=== PATIENT | female | born 1985 | race Caucasian/White ===

== ENCOUNTER 2023-01-15 03:20 | Inpatient (IN) | payer MEDICAID, OTHER ==
--- NOTE | 2023-01-15 04:55 | ED ---
General Adult HPI - General Source: patient, RN notes reviewed, old records reviewed Mode of arrival: ambulatory <Merlin Bello - Last Filed: 01/15/23 05:40> <Steven Pineda - Last Filed: 01/15/23 15:57> - General Chief complaint: Psychiatric Symptoms Stated complaint: LE Petition - Mental Health Time Seen by Provider: 01/15/23 03:34 - History of Present Illness Initial comments: 37-year-old female presenting for mental health evaluation, suspected overdose. Patient is reluctant to give any details as to what medication or illicit substances she may have ingested or when she ingested these substances. She is alert and oriented however she is not agreeable with history or physical exam. Patient was brought in by police and has been petitioned. (Merlin Bello) - Related Data Home Medications Medication Instructions Recorded Confirmed Cetirizine HCl 10 mg PO DAILY 01/15/23 01/15/23 Cholecalciferol (Vitamin D3) 75 mcg PO DAILY 01/15/23 01/15/23 [Vitamin D3 (3000 Iu)] Ibuprofen [Motrin] 800 mg PO TID PRN 01/15/23 01/15/23 Levothyroxine Sodium [Synthroid] 100 mcg PO DAILY 01/15/23 01/15/23 Montelukast [Singulair] 10 mg PO DAILY 01/15/23 01/15/23 Pantoprazole Sodium [Protonix] 20 mg PO BID 01/15/23 01/15/23 Allergies Allergy/AdvReac Type Severity Reaction Status Date / Time No Known Allergies Allergy Verified 01/15/23 09:29 Review of Systems ROS Other: All systems not noted in ROS Statement are negative. <Merlin Bello - Last Filed: 01/15/23 05:40> ROS Other: All systems not noted in ROS Statement are negative. <Steven Pineda - Last Filed: 01/15/23 15:57> ROS Statement: Those systems with pertinent positive or pertinent negative responses have been documented in the HPI. Past Medical History Past Medical History: Thyroid Disorder Additional Past Medical History / Comment(s): boils, hypothyroidism. History of Any Multi-Drug Resistant Organisms: None Reported Past Surgical History: Cholecystectomy Additional Past Surgical History / Comment(s): brain surgery, Past Psychological History: Depression Past Alcohol Use History: None Reported Past Drug Use History: None Reported <AceMerlin Diamond - Last Filed: 01/15/23 05:40> General Exam General appearance: alert, in no apparent distress Head exam: Present: atraumatic, normocephalic Eye exam: Present: normal appearance Neck exam: Present: normal inspection Respiratory exam: Absent: respiratory distress Cardiovascular Exam: Present: regular rate (As assessed with triage vitals) GI/Abdominal exam: Absent: distended Extremities exam: Present: normal inspection Neurological exam: Present: alert, normal gait. Absent: motor sensory deficit Psychiatric exam: Present: agitated, anxious Skin exam: Present: warm, dry, intact <Merlin Bello - Last Filed: 01/15/23 05:40> Course <Merlin Bello - Last Filed: 01/15/23 05:40> Vital Signs 01/15/23 03:30 Temperature 98 F Pulse Rate 99 Respiratory 18 Rate Blood Pressure 133/83 O2 Sat by Pulse 99 Oximetry - Reevaluation(s) Reevaluation #1: 01/15/23 05:40 Patient medically cleared for EPS evaluation (Merlin Bello) Medical Decision Making - Lab Data Result diagrams: 01/15/23 04:29 01/15/23 04:29 <Merlin Bello - Last Filed: 01/15/23 05:40> - Lab Data Result diagrams: 01/15/23 04:29 01/15/23 04:29 <Steven Pineda - Last Filed: 01/15/23 15:57> - Medical Decision Making Was pt. sent in by a medical professional or institution (Dr. PA, PLASTIC MACHINE OPERATOR, urgent care, hospital, or [facility]...) When possible be specific @ -[No] Did you speak to anyone other than the patient for history (EMS, parent, family, police, friend...)? What history was obtained from this source @ -Local police Did you review nursing and triage notes (agree or disagree)? Why? @ -[I reviewed and agree with nursing and triage notes] Were old charts reviewed (outside hosp., previous admission, EMS record, old EKG, old radiological studies, urgent care reports/EKG's, [facility] records)? Report findings @ -[No old charts were reviewed] Differential Diagnosis (chest pain, altered mental status, abdominal pain women, abdominal pain men, vaginal bleeding, weakness, fever, dyspnea, syncope, head ache, dizziness, GI bleed, back pain, seizure, CVA, palpatations, mental health, musculoskeletal)? @ -Differential Mental Health Depression, anxiety, bipolar, psychosis, schizophrenia, borderline personality, situational depression, adjustment disorder, behavioral disorder, brain tumor, malingering, substance abuse, encephalopathy, medication reaction, dementia, hypothyroidism, degenerative neurologic disorder, lupus.... This is not meant to be all-inclusive list EKG interpreted by me (3pts min.). @ Sinus rhythm artifact limiting assessment, rate of 78, AL interval 180, QRS duration 95, QTC 441 X-rays interpreted by me (1pt min.). @ -[None done] CT interpreted by me (1pt min.). @ -[None done] U/S interpreted by me (1pt. min.). @ -[None done] What testing was considered but not performed or refused? (CT, X-rays, U/S, labs)? Why? @ -[None] What meds were considered but not given or refused? Why? @ -[None] Did you discuss the management of the patient with other professionals (professionals i.e. , PA, PLASTIC MACHINE OPERATOR, lab, RT, psych nurse, sexual assault social worker, senior embedded software engineer, teacher, staff air defense officer, case management manager)? Give summary @ EPS nurse Was smoking cessation discussed for >3mins.? @ -[No] Was critical care preformed (if so, how long)? @ -[No] Were there social determinants of health that impacted care today? How? (Homeles sness, low income, unemployed, alcoholism, drug addiction, transportation, low edu. Level, literacy, decrease access to med. care, assisted, rehab)? @ -[No] Was there de-escalation of care discussed even if they declined (Discuss DNR or withdrawal of care, Hospice)? DNR status @ -[No] What co-morbidities impacted this encounter? (DM, HTN, Smoking, COPD, CAD, Cancer, CVA, ARF, Chemo, Hep., AIDS, mental health diagnosis, sleep apnea, morbid obesity)? @ Depression Was patient admitted / discharged? Hospital course, mention meds given and route, prescriptions, significant lab abnormalities, going to OR and other pertinent info. @ Patient has been medically cleared and currently awaiting EPS evaluation for suicide attempt. Patient has been petitioned by local police. (Merlin Bello) Patient was seen by mental health nurse with plans for admission. They do request certain. I did discuss the case with mental health nurse. Patient was reevaluated by myself, Dr. Pineda. Patient resting comfortably in bed. Patient amiss to suicidal thoughts with plan. Patient also has had some recent hallucinations. Patient also admits to having thoughts of harming others because she does not have her phone. Diagnosis: Depression, hallucinations, suicidal ideation Acute acute, acute Positive clinical certificate was completed (Steven Pineda) - Lab Data Lab Results 01/15/23 01/15/23 01/15/23 Range/Units 04:29 04:29 04:29 WBC 11.4 H (3.8-10.6) k/uL RBC 4.23 (3.80-5.40) m/uL Hgb 12.1 (11.4-16.0) gm/dL Hct 37.4 (34.0-46.0) % MCV 88.6 (80.0-100.0) fL MCH 28.6 (25.0-35.0) pg MCHC 32.3 (31.0-37.0) g/dL RDW 15.1 (11.5-15.5) % Plt Count 478 H (150-450) k/uL MPV 6.6 Neutrophils % 75 % Lymphocytes % 17 % Monocytes % 5 % Eosinophils % 1 % Basophils % 0 % Neutrophils # 8.6 H (1.3-7.7) k/uL Lymphocytes # 1.9 (1.0-4.8) k/uL Monocytes # 0.6 (0-1.0) k/uL Eosinophils # 0.1 (0-0.7) k/uL Basophils # 0.0 (0-0.2) k/uL Sodium (137-145) mmol/L Potassium (3.5-5.1) mmol/L Chloride (98-107) mmol/L Carbon Dioxide (22-30) mmol/L Anion Gap mmol/L BUN (7-17) mg/dL Creatinine (0.52-1.04) mg/dL Est GFR (CKD-EPI)AfAm (>60 ml/min/1.73 sqM) Est GFR (CKD-EPI)NonAf (>60 ml/min/1.73 sqM) Glucose (74-99) mg/dL Calcium (8.4-10.2) mg/dL Total Bilirubin (0.2-1.3) mg/dL AST (14-36) U/L ALT (4-34) U/L Alkaline Phosphatase (38-126) U/L Total Protein (6.3-8.2) g/dL Albumin (3.5-5.0) g/dL Urine HCG, Qual Not Detected (Not Detectd) Salicylates mg/dL Urine Opiates Screen Not Detected (NotDetected) Ur Oxycodone Screen Not Detected (NotDetected) Urine Methadone Screen Not Detected (NotDetected) Ur Propoxyphene Screen Not Detected (NotDetected) Acetaminophen ug/mL Ur Barbiturates Screen Not Detected (NotDetected) U Tricyclic Antidepress Not Detected (NotDetected) Ur Phencyclidine Scrn Not Detected (NotDetected) Ur Amphetamines Screen Detected H (NotDetected) U Methamphetamines Scrn Detected H (NotDetected) U Benzodiazepines Scrn Not Detected (NotDetected) Urine Cocaine Screen Not Detected (NotDetected) U Marijuana (THC) Screen Detected H (NotDetected) Serum Alcohol mg/dL 01/15/23 Range/Units 04:29 WBC (3.8-10.6) k/uL RBC (3.80-5.40) m/uL Hgb (11.4-16.0) gm/dL Hct (34.0-46.0) % MCV (80.0-100.0) fL MCH (25.0-35.0) pg MCHC (31.0-37.0) g/dL RDW (11.5-15.5) % Plt Count (150-450) k/uL MPV Neutrophils % % Lymphocytes % % Monocytes % % Eosinophils % % Basophils % % Neutrophils # (1.3-7.7) k/uL Lymphocytes # (1.0-4.8) k/uL Monocytes # (0-1.0) k/uL Eosinophils # (0-0.7) k/uL Basophils # (0-0.2) k/uL Sodium 139 (137-145) mmol/L Potassium 3.2 L (3.5-5.1) mmol/L Chloride 100 (98-107) mmol/L Carbon Dioxide 29 (22-30) mmol/L Anion Gap 10 mmol/L BUN 10 (7-17) mg/dL Creatinine 1.05 H (0.52-1.04) mg/dL Est GFR (CKD-EPI)AfAm 78 (>60 ml/min/1.73 sqM) Est GFR (CKD-EPI)NonAf 68 (>60 ml/min/1.73 sqM) Glucose 106 H (74-99) mg/dL Calcium 8.5 (8.4-10.2) mg/dL Total Bilirubin 1.1 (0.2-1.3) mg/dL AST 25 (14-36) U/L ALT 17 (4-34) U/L Alkaline Phosphatase 107 (38-126) U/L Total Protein 7.7 (6.3-8.2) g/dL Albumin 4.2 (3.5-5.0) g/dL Urine HCG, Qual (Not Detectd) Salicylates <1.0 mg/dL Urine Opiates Screen (NotDetected) Ur Oxycodone Screen (NotDetected) Urine Methadone Screen (NotDetected) Ur Propoxyphene Screen (NotDetected) Acetaminophen <10.0 ug/mL Ur Barbiturates Screen (NotDetected) U Tricyclic Antidepress (NotDetected) Ur Phencyclidine Scrn (NotDetected) Ur Amphetamines Screen (NotDetected) U Methamphetamines Scrn (NotDetected) U Benzodiazepines Scrn (NotDetected) Urine Cocaine Screen (NotDetected) U Marijuana (THC) Screen (NotDetected) Serum Alcohol <10 mg/dL Disposition <Merlin Bello - Last Filed: 01/15/23 05:40> Is patient prescribed a controlled substance at d/c from ED?: No Time of Disposition: 15:57 <Steven Pineda - Last Filed: 01/15/23 15:57> Clinical Impression: Depression, Suicidal ideation Disposition: TRANSFER TO PSYCH HOSP/UNIT Referrals: David Flores MD [Primary Care Provider] - 1-2 days
[2023-01-15 04:56] LABS: Basophils % (A) 0 %; Eosinophils # (A) 0.1 k/uL (0-0.7); Eosinophils % (A) 1 %; HCT 37.4 % (34.0-46.0); HGB 12.1 gm/dL (11.4-16.0); Lymphocytes # (A) 1.9 k/uL (1.0-4.8); Lymphocytes % (A) 17 %; MCH 28.6 pg (25.0-35.0); MCHC 32.3 g/dL (31.0-37.0); MCV 88.6 fL (80.0-100.0); Mean Platelet Volume 6.6; Monocytes # (A) 0.6 k/uL (0-1.0); Monocytes % (A) 5 %; Neutrophils # (A) 8.6 k/uL (1.3-7.7); Neutrophils % (A) 75 %; Platelet Count 478 k/uL (150-450); RBC 4.23 m/uL (3.80-5.40); RDW 15.1 % (11.5-15.5); WBC 11.4 k/uL (3.8-10.6)
[2023-01-15 05:00] LABS: ALT 17 U/L (4-34); AST 25 U/L (14-36); Acetaminophen <10.0 ug/mL; African American GFR (CKD) 78 (>60 ml/min/1.73 sqM); Albumin 4.2 g/dL (3.5-5.0); Alcohol <10 mg/dL; Alkaline Phosphatase 107 U/L (38-126); Anion Gap 10 mmol/L; Blood Urea Nitrogen 10 mg/dL (7-17); Calcium 8.5 mg/dL (8.4-10.2); Carbon Dioxide 29 mmol/L (22-30); Chloride 100 mmol/L (98-107); Glucose 106 mg/dL (74-99); Non-African American GFR(CKD) 68 (>60 ml/min/1.73 sqM); Potassium 3.2 mmol/L (3.5-5.1); Salicylate <1.0 mg/dL; Sodium 139 mmol/L (137-145); Total Bilirubin 1.1 mg/dL (0.2-1.3); Total Protein 7.7 g/dL (6.3-8.2)
[2023-01-15] MEDS ORDERED: LORazepam 2 MG/ML INJ IM STA (06:03)
[2023-01-15 06:13] LABS: Amphetamine Screen,Urine Detected (NotDetected); Barbiturate Screen,Urine Not Detected (NotDetected); Benzodiazepines Screen,Urine Not Detected (NotDetected); Cocaine Screen,Urine Not Detected (NotDetected); Methadone Screen, Urine Not Detected (NotDetected); Opiate Screen,Urine Not Detected (NotDetected); Oxycodone Screen, Urine Not Detected (NotDetected); Phencyclidine Screen,Urine Not Detected (NotDetected); Tricyclic Antidepressant,Urine Not Detected (NotDetected); Urn Cannabinoid Scrn Detected (NotDetected)
[2023-01-16] MEDS ORDERED: IBUPROFEN 800 MG TAB PO PRN (00:17)
[2023-01-16] MEDS ORDERED: ACETAMINOPHEN TAB 325 MG TAB PO PRN (00:18)
[2023-01-16] MEDS ORDERED: haloperidoL 5 MG TAB PO PRN (00:18)
[2023-01-16] MEDS ORDERED: LORazepam 2 MG/ML INJ IM PRN (00:18)
[2023-01-16] MEDS ORDERED: HALOPERIDOL LACTATE 5 MG/ML 1 ML VIAL IM PRN (00:18)
[2023-01-16] MEDS ORDERED: MAGNESIUM HYDROXIDE 2,400 MG/10 ML CUP PO PRN (00:18)
[2023-01-16] MEDS ORDERED: LORazepam 1 MG TAB PO PRN (00:18)
[2023-01-16] MEDS ORDERED: MAG HYDROX/AL HYDROX/SIMETH 30 ML CUP PO PRN (00:18)
[2023-01-16] MEDS ORDERED: IBUPROFEN 600 MG TAB PO PRN (00:18)
[2023-01-16] MEDS: LEVOTHYROXINE 100 MCG TAB PO SCH (06:55)
[2023-01-16] MEDS ORDERED: NICOTINE 14MG/24HR PATCH TRANSDERM SCH (09:00)
[2023-01-16] MEDS: MONTELUKAST 10 MG TAB PO SCH (09:39)
[2023-01-16] MEDS: CHOLECALCIFEROL 25 MCG (1000 IU) TABLET PO SCH (09:39)
[2023-01-16] MEDS: LORATADINE 10 MG TAB PO SCH (09:39)
[2023-01-16] MEDS: PANTOPRAZOLE 40 MG TABLET PO SCH ×2 (09:40→21:40)
[2023-01-16] MEDS ORDERED: FLUoxetine HCL 20 MG CAP PO STA (11:17)
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
[2023-01-16] MEDS: QUEtiapine 50 MG TAB PO SCH (21:40)
[2023-01-17] MEDS: LEVOTHYROXINE 100 MCG TAB PO SCH (06:28)
[2023-01-17] MEDS: MONTELUKAST 10 MG TAB PO SCH (09:35)
[2023-01-17] MEDS: FLUoxetine HCL 10 MG CAP PO SCH (09:35)
[2023-01-17] MEDS: PANTOPRAZOLE 40 MG TABLET PO SCH ×2 (09:35→20:41)
[2023-01-17] MEDS: CHOLECALCIFEROL 25 MCG (1000 IU) TABLET PO SCH (09:35)
[2023-01-17] MEDS: LORATADINE 10 MG TAB PO SCH (09:35)
--- NOTE | 2023-01-17 09:41 | CONS ---
CONSULTATION SERVICE: Psychiatric Consult. CHIEF COMPLAINT: Major depression with suicidal attempt and thoughts. HISTORY OF PRESENT ILLNESS: This lady apparently was overdosed and was stating that she wanted to kill herself and she was admitted. REVIEW OF SYSTEMS: Quite lethargic and cannot give a history. PHYSICAL EXAMINATION: VITAL SIGNS: Normal. HEAD, EARS, EYES, NOSE, MOUTH AND NECK: Normal. CHEST: Clear. CARDIAC: Normal. ABDOMEN: Soft. EXTREMITIES: Normal. NEUROLOGICAL: Intact. She is admitted with diagnoses, 1. Major depression with overdose and suicide attempt. RECOMMENDATIONS: None except to resume her usual medications including Thyroid, Protonix, Singulair. MMODL / IJN: [id number] /
--- NOTE | 2023-01-17 11:38 | P.PN ---
Progress Note - Text Progress Note Date: 01/17/23 Interval History: Patient was seen resting in bed and was directable and agreeable to speak with telegraphic typewriter operator in her room. Currently, the patient is not reporting any suicidal or homicidal ideation, intention, and/or plan. She is not reporting any auditory or visual hallucinations. She is not reporting any paranoia or other delusions. She reports no issues regarding her sleep or her appetite. She reports that the medications are doing well for her. She does express a strong desire for discharge has child protective services interviewed her on the unit. The patient is concerned that she is losing her children to their father. She does express a desire to be with her children. Mental Status Exam: General Appearance: Patient appears to be stated age is alert, directable, and cooperative. Behavior: Patient is calmly seated without any agitated behavior. Speech: Patient's speech is fluent and nonpressured. Mood/Affect: Mood is improving mildly, affect is congruent and constricted. Suicidality/Homicidality: Patient denies having any suicidal or homicidal idea tion intent or plan. Perceptions: Patient denies any visual hallucinations and denies any auditory hallucinations Though content/process: There is no evidence of any delusional thought content and thought process is linear and goal-directed. Memory and concentration: AOX3, grossly intact for the purposes of this session Judgment and insight: Improving mildly Vital Signs Temp 97.5 F L 01/16/23 02:19 Pulse 92 01/16/23 20:46 Resp 18 01/16/23 20:46 BP 120/68 01/16/23 20:46 Pulse Ox 94 L 01/16/23 02:19 FiO2 Laboratory Results WBC 11.4 k/uL (3.8-10.6) H 01/15/23 04:29 RBC 4.23 m/uL (3.80-5.40) 01/15/23 04:29 Hgb 12.1 gm/dL (11.4-16.0) 01/15/23 04:29 Hct 37.4 % (34.0-46.0) 01/15/23 04:29 MCV 88.6 fL (80.0-100.0) 01/15/23 04:29 MCH 28.6 pg (25.0-35.0) 01/15/23 04:29 MCHC 32.3 g/dL (31.0-37.0) 01/15/23 04:29 RDW 15.1 % (11.5-15.5) 01/15/23 04:29 Plt Count 478 k/uL (150-450) H 01/15/23 04:29 MPV 6.6 01/15/23 04:29 Neutrophils % 75 % 01/15/23 04:29 Lymphocytes % 17 % 01/15/23 04:29 Monocytes % 5 % 01/15/23 04:29 Eosinophils % 1 % 01/15/23 04:29 Basophils % 0 % 01/15/23 04:29 Neutrophils # 8.6 k/uL (1.3-7.7) H 01/15/23 04:29 Lymphocytes # 1.9 k/uL (1.0-4.8) 01/15/23 04:29 Monocytes # 0.6 k/uL (0-1.0) 01/15/23 04:29 Eosinophils # 0.1 k/uL (0-0.7) 01/15/23 04:29 Basophils # 0.0 k/uL (0-0.2) 01/15/23 04:29 Sodium 139 mmol/L (137-145) 01/15/23 04:29 Potassium 3.2 mmol/L (3.5-5.1) L 01/15/23 04:29 Chloride 100 mmol/L (98-107) 01/15/23 04:29 Carbon Dioxide 29 mmol/L (22-30) 01/15/23 04:29 Anion Gap 10 mmol/L 01/15/23 04:29 BUN 10 mg/dL (7-17) 01/15/23 04:29 Creatinine 1.05 mg/dL (0.52-1.04) H 01/15/23 04:29 Est GFR (CKD-EPI)AfAm 78 (>60 ml/min/1.73 sqM) 01/15/23 04:29 Est GFR (CKD-EPI)NonAf 68 (>60 ml/min/1.73 sqM) 01/15/23 04:29 Glucose 106 mg/dL (74-99) H 01/15/23 04:[address] Glu mg/dL 105 01/15/23 04:29 Hemoglobin A1c 5.3 % (0.0-6.0) 01/15/23 04:29 Calcium 8.5 mg/dL (8.4-10.2) 01/15/23 04:29 Total Bilirubin 1.1 mg/dL (0.2-1.3) 01/15/23 04:29 AST 25 U/L (14-36) 01/15/23 04:29 ALT 17 U/L (4-34) 01/15/23 04:29 Alkaline Phosphatase 107 U/L (38-126) 01/15/23 04:29 Total Protein 7.7 g/dL (6.3-8.2) 01/15/23 04:29 Albumin 4.2 g/dL (3.5-5.0) 01/15/23 04:29 TSH >100.000 mIU/L (0.465-4.680) H 01/15/23 04:29 Urine HCG, Qual Not Detected (Not Detectd) 01/15/23 04:29 Salicylates <1.0 mg/dL 01/15/23 04:29 Urine Opiates Screen Not Detected (NotDetected) 01/15/23 04:29 Ur Oxycodone Screen Not Detected (NotDetected) 01/15/23 04:29 Urine Methadone Screen Not Detected (NotDetected) 01/15/23 04:29 Ur Propoxyphene Screen Not Detected (NotDetected) 01/15/23 04:29 Acetaminophen <10.0 ug/mL 01/15/23 04:29 Ur Barbiturates Screen Not Detected (NotDetected) 01/15/23 04:29 U Tricyclic Antidepress Not Detected (NotDetected) 01/15/23 04:29 Ur Phencyclidine Scrn Not Detected (NotDetected) 01/15/23 04:29 Ur Amphetamines Screen Detected (NotDetected) H 01/15/23 04:29 U Methamphetamines Scrn Detected (NotDetected) H 01/15/23 04:29 U Benzodiazepines Scrn Not Detected (NotDetected) 01/15/23 04:29 Urine Cocaine Screen Not Detected (NotDetected) 01/15/23 04:29 U Marijuana (THC) Screen Detected (NotDetected) H 01/15/23 04:29 Serum Alcohol <10 mg/dL 01/15/23 04:29 Coronavirus (PCR) Not Detected (Not Detectd) 01/15/23 23:03 Assessment Substance induced mood disorder Rule out PTSD Rule out major depressive disorder Methamphetamine abuse Cannabis use disorder Opiate abuse Plan: -Patient continues to meet criteria for inpatient psychiatric admission for symptom stabilization and safety. Patient has signed adult voluntary form and medication consent and was placed in patient's chart. -Medications: Increase Prozac to 30 mg by mouth daily for depression/anxiety Continue Seroquel 50 mg by mouth at bedtime for mood augmentation/stabilization -When necessary Ativan and Haldol for agitation/aggression. -SW on board for discharge planning. Encouraged the patient to participate in milieu.
[2023-01-17 13:31] LABS: Chol/HDL Ratio 6.09 Ratio; LDL Cholesterol,Calculated 177.1 mg/dL (0.0-131.0)
[2023-01-17] MEDS: QUEtiapine 50 MG TAB PO SCH (20:41)
[2023-01-18] MEDS: LEVOTHYROXINE 100 MCG TAB PO SCH (06:45)
[2023-01-18 06:49] VITALS: BP 79/50; PULSE 60; RESP 17; TEMP 98.2
[2023-01-18] MEDS: MONTELUKAST 10 MG TAB PO SCH (09:12)
[2023-01-18] MEDS: PANTOPRAZOLE 40 MG TABLET PO SCH (09:12)
[2023-01-18] MEDS: CHOLECALCIFEROL 25 MCG (1000 IU) TABLET PO SCH (09:12)
[2023-01-18] MEDS: LORATADINE 10 MG TAB PO SCH (09:12)
[2023-01-18] MEDS: FLUoxetine HCL 10 MG CAP PO SCH (09:13)
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
== END 2023-01-18 12:21 | disposition home or self-care (01) | DRG 812 ==
LOC: EC 03:20 → 3MHU 01-16 00:09
PROVIDERS: ADMIT Psychiatry & Neurology Psychiatry; ATTEND Psychiatry & Neurology Psychiatry
DX: T40.2X1A Poisoning by other opioids, accidental (unintentional), initial encounter (principal); T43.621A Poisoning by amphetamines, accidental (unintentional), initial encounter; R45.851 Suicidal ideations; F11.10 Opioid abuse, uncomplicated; F15.20 Other stimulant dependence, uncomplicated; F15.10 Other stimulant abuse, uncomplicated; E03.9 Hypothyroidism, unspecified; F12.10 Cannabis abuse, uncomplicated; F19.14 Other psychoactive substance abuse with psychoactive substance-induced mood disorder; Z20.822 Contact with and (suspected) exposure to COVID-19; Z79.890 Hormone replacement therapy; Z71.51 Drug abuse counseling and surveillance of drug abuser
CPT/HCPCS: 36415; 80053; 80061; 80143; 80179; 80306; 80320; 81025; 82075; 83036; 84443; 85025; 87635; 93005; 96372; 99285

== ENCOUNTER 2023-06-14 15:10 | Emergency (ER) | payer MEDICAID, OTHER ==
--- NOTE | 2023-06-14 15:19 | ED ---
Psych HPI - General Source: RN notes reviewed <Anayeli Keyes - Last Filed: 06/14/23 15:18> - General Source: patient, RN notes reviewed, old records reviewed <Ramone Pompa - Last Filed: 06/18/23 08:01> - General Stated Complaint: mental health Time Seen by Provider: 06/14/23 15:18 - History of Present Illness Initial Comments: Patient is a 38-year-old female who presents to the emergency department for suicidal ideation (Anayeli Keyes) Patient is a 38-year-old female who presents emergency Department complaining of suicidal ideations, appears acutely psychotic. Has a history of psychiatric illness. Has flight of ideas. is speaking fast and appears delusional. He endorses suicidal ideations but no plans or attempts. Endorses homicidal ideations but opens her times. Refuses to answer regarding hallucinations. States she typically hit of a vape pen but denies any other drugs. Has no other acute complaints at this time. Was recently in long-term. States she is not on medications but should be. Presents for further evaluation.Patient was trying to start fights with other patients in the waiting room which is why she was brought back for evaluation ahead of the large line. (Ramone Pompa) - Related Data Previous Rx's Medication Instructions Recorded Acetaminophen Tab [Tylenol] 650 mg PO Q4HR PRN tab 06/11/23 Divalproex [Depakote] 500 mg PO HS 30 Days #30 tab 06/11/23 Ibuprofen [Motrin] 600 mg PO Q6HR PRN 30 Days #120 tab 06/11/23 Levothyroxine Sodium [Synthroid] 150 mcg PO DAILY 30 Days #30 tab 06/11/23 Paliperidone [Invega] 6 mg PO HS 30 Days #30 tab 06/11/23 Sertraline [Zoloft] 100 mg PO DAILY 30 Days #60 tab 06/11/23 hydrOXYzine pamoate [Vistaril] 50 mg PO DAILY PRN 30 Days #60 cap 06/11/23 traZODone HCL [Desyrel] 100 - 150 mg PO HS PRN 30 Days #30 06/11/23 tab Allergies Allergy/AdvReac Type Severity Reaction Status Date / Time No Known Allergies Allergy Verified 06/14/23 20:20 Review of Systems ROS Other: All systems not noted in ROS Statement are negative. <StephyAnayeli - Last Filed: 06/14/23 15:18> ROS Other: All systems not noted in ROS Statement are negative. <Ramone Pompa - Last Filed: 06/18/23 08:01> ROS Statement: Those systems with pertinent positive or pertinent negative responses have been documented in the HPI. Review of Systems: CONST: Denies fever EYES: Denies blurry vision ENT: Denies nasal congestion C/V: Denies Chest pain RESP: Denies shortness of breath GI: Denies abdominal pain : Denies dysuria SKIN: Denies rash. MSK: Denies joint pain. NEURO: Denies headache PSYCH: Endorses suicidal and homicidal ideations but denies plans/attempts. Denies visual or auditory hallucinations. (Ramone Pompa) Past Medical History Past Medical History: Thyroid Disorder Additional Past Medical History / Comment(s): boils, hypothyroidism. History of Any Multi-Drug Resistant Organisms: None Reported Past Surgical History: Cholecystectomy Additional Past Surgical History / Comment(s): brain surgery, Past Anesthesia/Blood Transfusion Reactions: No Reported Reaction Smoking Status: Former smoker - Past Family History Mother History Unknown: Yes <Matt Keyesna - Last Filed: 06/14/23 15:18> General Exam <Stephy,Anayeli - Last Filed: 06/14/23 15:18> <Ramone Pompa - Last Filed: 06/18/23 08:01> - General Exam Comments Initial Comments: Visual Physical Exam Vital signs reviewed General: Well-appearing, nontoxic, no acute distress. Head: Normocephalic, atraumatic Eyes: PERRLA, EOMI ENT: Airway patent Chest: Nonlabored breathing Skin: No visual rash, normal skin tone Neuro: Alert and oriented 3 Musculoskeletal: No gross abnormalities (StephyMgAnayeli) General: Appears acutely psychotic, disheveled HEAD: Normal with no signs of head trauma. EYES: PERRLA, EOMI, conjunctiva normal, no discharge. ENT: Hearing grossly intact, normal oropharynx. RESPIRATORY: Clear breath sounds bilaterally. No wheezes, rales, or rhonchi. C/V: Regular rate and rhythm. S1 and S2 auscultated, peripheral pulses 2+ and intact throughout ABD: Abd is soft, nontender, nondistended EXT: Normal range of motion, no obvious deformity SKIN: No rashes or lesions observed on exposed skin. NEURO: Alert and oriented 4. No obvious deficits. (Ramone Pompa) Course Vital Signs 06/14/23 06/15/23 06/15/23 15:18 03:52 08:13 Temperature 98.4 F 98.6 F Pulse Rate 100 80 78 Respiratory 20 16 18 Rate Blood Pressure 121/87 104/68 128/74 O2 Sat by Pulse 99 96 99 Oximetry Medical Decision Making <Anayeli Keyes - Last Filed: 06/14/23 15:18> - Lab Data Result diagrams: 06/15/23 03:22 06/14/23 00:33 <Ramone Pompa - Last Filed: 06/18/23 08:01> - Medical Decision Making I performed the QuickNote portion of this chart - Anayeli Keyes PA-C (Anayeli Keyes) Was pt. sent in by a medical professional or institution ([facility], BUTADIENE CONVERTOR OPERATOR, urgent care, hospital, or detention...) When possible be specific @ -No Did you speak to anyone other than the patient for history (EMS, parent, family, police, friend...)? What history was obtained from this source @ -No Did you review nursing and triage notes (agree or disagree)? Why? @ -I reviewed and agree with nursing and triage notes Were old charts reviewed (outside hosp., previous admission, EMS record, old EKG, old radiological studies, urgent care reports/EKG's, detention records)? Report findings @ -Old charts reviewed. Differential Diagnosis (chest pain, altered mental status, abdominal pain women, abdominal pain men, vaginal bleeding, weakness, fever, dyspnea, syncope, headac he, dizziness, GI bleed, back pain, seizure, CVA, palpatations, mental health, musculoskeletal)? @ -Differential Mental Health Depression, anxiety, bipolar, psychosis, schizophrenia, borderline personality, situational depression, adjustment disorder, behavioral disorder, brain tumor, malingering, substance abuse, encephalopathy, medication reaction, dementia, hypothyroidism, degenerative neurologic disorder, lupus.... This is not meant to be all-inclusive list EKG interpreted by me (3pts min.). @ -None done X-rays interpreted by me (1pt min.). @ -None done CT interpreted by me (1pt min.). @ -None done U/S interpreted by me (1pt. min.). @ -None done What testing was considered but not performed or refused? (CT, X-rays, U/S, labs)? Why? @ -None What meds were considered but not given or refused? Why? @ -None Did you discuss the management of the patient with other professionals (professionals i.e. , PA, BUTADIENE CONVERTOR OPERATOR, lab, RT, psych nurse, oncology social work, student ministries director, teacher, credit products officer, rn field case manager)? Give summary @ -EPS notified of the consult. Was smoking cessation discussed for >3mins.? @ -No Was critical care preformed (if so, how long)? @ -No Were there social determinants of health that impacted care today? How? (Homelessness, low income, unemployed, alcoholism, drug addiction, transportation, low edu. Level, literacy, decrease access to med. care, long-term, rehab)? @ -No Was there de-escalation of care discussed even if they declined (Discuss DNR or withdrawal of care, Hospice)? DNR status @ -No What co-morbidities impacted this encounter? (DM, HTN, Smoking, COPD, CAD, Cancer, CVA, ARF, Chemo, Hep., AIDS, mental health diagnosis, sleep apnea, morbid obesity)? @ -None Was patient admitted / discharged? Hospital course, mention meds given and route, prescriptions, significant lab abnormalities, going to OR and other pertinent info. @ -Based on the patient's presentation and physical exam, does appear to be acutely psychotic. Initially she thought she may require restraints but she became cooperative. She is changed into green scrubs. Suicide precautions ordered. Sitter ordered. BAT is 0. UDS is pending. Vital signs are within acceptable limits. Patient is medically cleared for evaluation by psychiatry. Disposition pending psychiatric evaluation. EPS notified of the consult.Patient is acutely psychotic. He was agitated and began throwing things at staff members. Patient was given IM Ativan and Haldol which did improve her agitation. Patient was eventually transferred to another psychiatric facility after EPS evaluate the patient. Undiagnosed new problem with uncertain prognosis? @ -No Drug Therapy requiring intensive monitoring for toxicity (Heparin, Nitro, Insulin, Cardizem)? @ -No Were any procedures done? @ -No Diagnosis/symptom? @ -Encounter for psychiatric evaluation, psychosis NOS Acute, or Chronic, or Acute on Chronic? @ -Acute Uncomplicated (without systemic symptoms) or Complicated (systemic symptoms)? @ -Complicated Side effects of treatment? @ -none Exacerbation, Progression, or Severe Exacerbation] @ -no Poses a threat to life or bodily function? @ -Possibly yes (Ramone Pompa) - Lab Data Lab Results 06/14/23 06/15/23 06/15/23 Range/Units 00:33 03:22 03:22 WBC 7.9 (3.8-10.6) k/uL RBC 3.79 L (3.80-5.40) m/uL Hgb 10.7 L (11.4-16.0) gm/dL Hct 33.6 L (34.0-46.0) % MCV 88.7 (80.0-100.0) fL MCH 28.2 (25.0-35.0) pg MCHC 31.8 (31.0-37.0) g/dL RDW 15.7 H (11.5-15.5) % Plt Count 296 (150-450) k/uL MPV 7.1 Sodium 136 L (137-145) mmol/L Potassium 3.7 (3.5-5.1) mmol/L Chloride 103 (98-107) mmol/L Carbon Dioxide 24 (22-30) mmol/L Anion Gap 9 mmol/L BUN 12 (7-17) mg/dL Creatinine 0.68 (0.52-1.04) mg/dL Est GFR (CKD-EPI)AfAm >90 (>60 ml/min/1.73 sqM) Est GFR (CKD-EPI)NonAf >90 (>60 ml/min/1.73 sqM) Glucose 76 (74-99) mg/dL Calcium 8.6 (8.4-10.2) mg/dL Total Bilirubin 0.5 (0.2-1.3) mg/dL AST 21 (14-36) U/L ALT 12 (4-34) U/L Alkaline Phosphatase 75 (38-126) U/L Total Protein 6.3 (6.3-8.2) g/dL Albumin 3.2 L (3.5-5.0) g/dL Urine Color Light Waller Urine Appearance Clear (Clear) Urine pH 5.5 (5.0-8.0) Ur Specific [place] >1.030 (1.001-1.035) Urine Protein 1+ (Negative) Urine Glucose (UA) Negative (Negative) Urine Ketones 1+ (Negative) Urine Blood Negative (Negative) Urine Nitrite Negative (Negative) Urine Bilirubin 1+ (Negative) Urine Urobilinogen 2.0 (<2.0) mg/dL Ur Leukocyte Esterase Negative (Negative) Urine RBC 3 (0-5) /hpf Urine WBC 3 (0-5) /hpf Ur Squamous Epith Cells 6 H (0-4) /hpf Urine Mucus Many H (None) /hpf Urine HCG, Qual (Not Detectd) Urine Opiates Screen (NotDetected) Ur Oxycodone Screen (NotDetected) Urine Methadone Screen (NotDetected) Ur Propoxyphene Screen (NotDetected) Ur Barbiturates Screen (NotDetected) U Tricyclic Antidepress (NotDetected) Ur Phencyclidine Scrn (NotDetected) Ur Amphetamines Screen (NotDetected) U Methamphetamines Scrn (NotDetected) U Benzodiazepines Scrn (NotDetected) Urine Cocaine Screen (NotDetected) U Marijuana (THC) Screen (NotDetected) Coronavirus (PCR) (Not Detectd) 06/15/23 06/15/23 06/15/23 Range/Units 03:22 03:22 03:22 WBC (3.8-10.6) k/uL RBC (3.80-5.40) m/uL Hgb (11.4-16.0) gm/dL Hct (34.0-46.0) % MCV (80.0-100.0) fL MCH (25.0-35.0) pg MCHC (31.0-37.0) g/dL RDW (11.5-15.5) % Plt Count (150-450) k/uL MPV Sodium (137-145) mmol/L Potassium (3.5-5.1) mmol/L Chloride (98-107) mmol/L Carbon Dioxide (22-30) mmol/L Anion Gap mmol/L BUN (7-17) mg/dL Creatinine (0.52-1.04) mg/dL Est GFR (CKD-EPI)AfAm (>60 ml/min/1.73 sqM) Est GFR (CKD-EPI)NonAf (>60 ml/min/1.73 sqM) Glucose (74-99) mg/dL Calcium (8.4-10.2) mg/dL Total Bilirubin (0.2-1.3) mg/dL AST (14-36) U/L ALT (4-34) U/L Alkaline Phosphatase (38-126) U/L Total Protein (6.3-8.2) g/dL Albumin (3.5-5.0) g/dL Urine Color Urine Appearance (Clear) Urine pH (5.0-8.0) Ur Specific [place] (1.001-1.035) Urine Protein (Negative) Urine Glucose (UA) (Negative) Urine Ketones (Negative) Urine Blood (Negative) Urine Nitrite (Negative) Urine Bilirubin (Negative) Urine Urobilinogen (<2.0) mg/dL Ur Leukocyte Esterase (Negative) Urine RBC (0-5) /hpf Urine WBC (0-5) /hpf Ur Squamous Epith Cells (0-4) /hpf Urine Mucus (None) /hpf Urine HCG, Qual Not Detected (Not Detectd) Urine Opiates Screen Not Detected (NotDetected) Ur Oxycodone Screen Not Detected (NotDetected) Urine Methadone Screen Not Detected (NotDetected) Ur Propoxyphene Screen Not Detected (NotDetected) Ur Barbiturates Screen Not Detected (NotDetected) U Tricyclic Antidepress Not Detected (NotDetected) Ur Phencyclidine Scrn Not Detected (NotDetected) Ur Amphetamines Screen Not Detected (NotDetected) U Methamphetamines Scrn Not Detected (NotDetected) U Benzodiazepines Scrn Detected H (NotDetected) Urine Cocaine Screen Not Detected (NotDetected) U Marijuana (THC) Screen Detected H (NotDetected) Coronavirus (PCR) Not Detected (Not Detectd) Disposition <Anayeli Keyes - Last Filed: 06/14/23 15:18> <Ramone Pompa - Last Filed: 06/18/23 08:01> Clinical Impression: Psychosis, Encounter for psychological evaluation Disposition: TRANSFER TO PSYCH HOSP/UNIT Condition: Stable Referrals: David Flores MD [Primary Care Provider] - 1-2 days
[2023-06-14] MEDS ORDERED: LORazepam 2 MG/ML INJ IM STA (16:09)
[2023-06-14] MEDS ORDERED: HALOPERIDOL LACTATE 5 MG/ML 1 ML VIAL IM STA ×3 (16:09→17:52)
[2023-06-14] MEDS ORDERED: LORazepam 2 MG/ML INJ IM PRN (16:38)
[2023-06-14] MEDS ORDERED: LORazepam 0.5 MG TAB PO STA (16:39)
[2023-06-15 01:35] LABS: ALT 12 U/L (4-34); AST 21 U/L (14-36); African American GFR (CKD) >90 (>60 ml/min/1.73 sqM); Albumin 3.2 g/dL (3.5-5.0); Alkaline Phosphatase 75 U/L (38-126); Anion Gap 9 mmol/L; Blood Urea Nitrogen 12 mg/dL (7-17); Calcium 8.6 mg/dL (8.4-10.2); Carbon Dioxide 24 mmol/L (22-30); Chloride 103 mmol/L (98-107); Glucose 76 mg/dL (74-99); Non-African American GFR(CKD) >90 (>60 ml/min/1.73 sqM); Potassium 3.7 mmol/L (3.5-5.1); Sodium 136 mmol/L (137-145); Total Bilirubin 0.5 mg/dL (0.2-1.3); Total Protein 6.3 g/dL (6.3-8.2)
[2023-06-15 03:43] LABS: HCT 33.6 % (34.0-46.0); HGB 10.7 gm/dL (11.4-16.0); MCH 28.2 pg (25.0-35.0); MCHC 31.8 g/dL (31.0-37.0); MCV 88.7 fL (80.0-100.0); Mean Platelet Volume 7.1; Platelet Count 296 k/uL (150-450); RBC 3.79 m/uL (3.80-5.40); RDW 15.7 % (11.5-15.5); WBC 7.9 k/uL (3.8-10.6)
[2023-06-15 04:07] VITALS: TEMP 98.6
[2023-06-15 04:12] LABS: Appearance,Urine Clear (Clear); Bilirubin,Urine 1+ (Negative); Color,Urine Light Orange; Glucose,Urine (UA) Negative (Negative); Ketones,Urine 1+ (Negative); PH, Urine 5.5 (5.0-8.0); Protein,Urine 1+ (Negative); Specific Gravity,Urine >1.030 (1.001-1.035)
[2023-06-15 04:13] LABS: Blood,Urine Negative (Negative); Leukocyte Esterase,Urine Negative (Negative); Mucus,Urine Many /hpf; Nitrite,Urine Negative (Negative); RBC,Urine 3 /hpf (0-5); Squamous Epithelial Cell,Urine 6 /hpf (0-4); WBC,Urine 3 /hpf (0-5)
[2023-06-15 04:18] LABS: Amphetamine Screen,Urine Not Detected (NotDetected); Cocaine Screen,Urine Not Detected (NotDetected); Opiate Screen,Urine Not Detected (NotDetected); Phencyclidine Screen,Urine Not Detected (NotDetected); Urn Cannabinoid Scrn Detected (NotDetected)
[2023-06-15 04:19] LABS: Barbiturate Screen,Urine Not Detected (NotDetected); Benzodiazepines Screen,Urine Detected (NotDetected); Methadone Screen, Urine Not Detected (NotDetected); Oxycodone Screen, Urine Not Detected (NotDetected); Tricyclic Antidepressant,Urine Not Detected (NotDetected)
[2023-06-15 08:23] VITALS: BP 128/74; PULSE 78; RESP 18
== END 2023-06-15 08:15 ==
LOC: EC 15:10
DX: F29 Unspecified psychosis not due to a substance or known physiological condition (principal); Z87.891 Personal history of nicotine dependence; Z90.49 Acquired absence of other specified parts of digestive tract; Z20.822 Contact with and (suspected) exposure to COVID-19
CPT/HCPCS: 99285; 96372 ×2; 82075; 36415; 80053; 85027; 81001; 81025; 80306; 87635; J2060; J1630